=== PATIENT | female | born 1955 | race Caucasian/White ===

== ENCOUNTER 2023-06-03 12:36 | Emergency (ER) | payer OTHER, SELFPAY ==
[2023-06-03 12:39] VITALS: BP 143/67
--- NOTE | 2023-06-03 13:27 | ED.GENMED ---
History of Present Illness
General
Chief Complaint: Musculo-Skeletal Complaint
Source: patient
Time Seen by Provider: 06/03/23 13:17
Travel History
Have you had any contact with someone who has COVID-19?: No
Do you have any symptoms of coronavirus? Fever > 100 degrees, chills, cough, shortness of breath, sore throat, loss of taste or smell, muscle aches, or headache?: No
History of Present Illness
History of Present Illness:
67-year-old female with past medical history of hypertension presenting to the emergency department for evaluation after an accidental trip and fall where she injured her left knee now with inability to flex and extend the knee with significant soft
tissue swelling over the patella. Patient denies any other injuries or concerns. Did not take anything for pain prior to arrival and is declining anything for pain. No other concerns at this time.
Past History
Past History
ED Past Medical History: HTN and Other (Thalassemia/anemia)
ED Past Surgical History: Gynecological and Orthopedic
Social History
Tobacco: Non-smoker
Alcohol: Occasional
Drug: None
Personal:
Living: with family
Employment: Employed
Family History
Family History: Other (Noncontributory)
Review of Systems
Review of Systems
All Other Systems: ROS reviewed and negative except as documented in HPI and ROS
Phy Exam
Physical Exam
Physical Exam:
GENERAL: Alert , in no apparent distress
EYE: conjunctiva clear
Head: Normocephalic atraumatic
NECK: Supple,
ENT: mmm.
LUNGS: no acute respiratory distress
NEUROLOGICAL: Alert and oriented
SKIN: Warm and dry, superficial abrasion anterior patella
MUSCULOSKELETAL: Left knee: Mild to moderate soft tissue swelling around the patella with moderate tenderness directly over the midportion of the patella. Unable to range of motion the left knee secondary to pain. Remainder of extremity is within
normal limits and without signs of trauma.
PSYCH: Normal and appropriate interaction.
Scores
Heart Failure Risk
Heart Failure Risk Score: Not Applicable
Heart Score for Chest Pain Patients
STEMI patient?: Not applicable
Withdrawal Assessment of Alcohol
Withdrawal Assessment Completed?: Not applicable
Course
Orders/Labs/Results
Orders:
Orders
06/03/23 12:42
Knee, Left 4 or More Views [CR Knee - Left 4 Or More View*] Urgent
Comment:
Reason For Exam: injury
06/03/23 13:33
Crutches-Treatment ONCE
Knee Immobilizer Left-Treatmen ONCE
Vital Signs
Initial and Last Documented VS:
Initial Vital Signs
Temp Pulse Resp BP Pulse Ox
97.7 F 82 16 143/67 99
06/03/23 12:39 06/03/23 12:39 06/03/23 12:39 06/03/23 12:39 06/03/23 12:39
Last Documented Vital Signs
Temp Pulse Resp BP Pulse Ox
97.7 F 82 16 143/67 99
06/03/23 12:39 06/03/23 12:39 06/03/23 12:39 06/03/23 12:39 06/03/23 12:39
MDM/Problems Addressed
Differential Diagnosis Includes:
Knee abrasion/contusion, fracture, patellar subluxation/dislocation
MDM/Problems Addressed:
67-year-old female presenting the emergency department for evaluation of left knee pain/injury sustained from an accidental fall. Patient was brought to x-ray from triage and on x-ray review patient has a nondisplaced left patella fracture.
Discussed management of patella fracture with the patient. Will provide with knee immobilizer and crutches. NSAIDs/Tylenol for pain. Prescription for Tylenol with codeine sent to patient's pharmacy. Information for outpatient orthopedist
provided. Stable for discharge home.
*Radiology
Radiology exam reviewed: preliminary read by ED provider (Nondisplaced patella fracture.)
*Pulse Oximetry
Patient hypoxic: no
*Critical Care Note
Total Time (30-74mins, 75-104mins- exclusive of procedures): Not Applicable
ED Attending Note
-
Portions of this chart may have been created with voice recognition software.� Occasional wrong word or��sound alike� substitutions may have occurred due to the inherent limitations of voice recognition software.
Discharge Plan
Departure
Patient Disposition: Home (Routine Discharge)
Date of Disposition: 06/03/23
Time of Disposition: 13:27
Patient with high blood pressure during this ER visit?: Yes
Discharge Problem:
Fracture of left patella
Instructions: Patella Fracture (DC)
Prescriptions:
New
acetaminophen-codeine 300-30 mg Tablet
1 tab PO Q4HPRN PRN (Reason: pain) Qty: 7 0RF
No Action
calcium carbonate 600 MG tablet
1,200 mg PO DAILY
Hydrochlorothiazide
12.5 mg PO DAILY
Patient Comments:
patient states she took this greater than one week ago
Restasis 0.05% Ophthalmic Emulsion:
1 drp BOTH EYES BID
acetaminophen-codeine 1 TABLET tablet
1 - 2 tab PO Q4HPRN PRN (Reason: pain) Qty: 30 0RF
Saccharomyces boulardii 250 MG capsule
250 mg PO BID Qty: 30 0RF
ibuprofen 600 MG tablet
600 mg PO Q6 Qty: 20 0RF
cephalexin [Keflex] 500 MG capsule
500 mg PO QID Qty: 28 0RF
acetaminophen-codeine 1 TABLET tablet
2 tab PO Q4HPRN PRN (Reason: pain) Qty: 15 0RF
Referrals:
Bella Joyce I., DO [Active] - (Ortho - Call for appointment)
Interventions
Interventions:
*Risk Screen - Suicide Last Done: 06/03/23 12:39
*General Assessment Last Done: 06/03/23 12:39
*Neglect/Abuse Screening Last Done: 06/03/23 12:39
== END 2023-06-03 14:00 | disposition home or self-care (01) ==
LOC: EMR 12:36
PROVIDERS: EMERGENCY PHYSICIAN Emergency Medicine; FAMILY PHYSICIAN Family Medicine
DX: S82.002A Unspecified fracture of left patella, initial encounter for closed fracture (principal); W01.0XXA Fall on same level from slipping, tripping and stumbling without subsequent striking against object, initial encounter; I10 Essential (primary) hypertension; D56.9 Thalassemia, unspecified
CPT/HCPCS: 99283; 29505; 73564

== ENCOUNTER → 2024-01-03 11:41 | Outpatient (REF) | payer OTHER, SELFPAY | LOC: WDC 11:41 | PROVIDERS: ATTENDING PHYSICIAN Family Medicine | DX: Z12.31 Encounter for screening mammogram for malignant neoplasm of breast (principal) | CPT/HCPCS: 77063; 77067 ==

== ENCOUNTER → 2024-01-11 10:38 | Outpatient (REF) | payer OTHER, SELFPAY | LOC: RAD 10:38 | PROVIDERS: ATTENDING PHYSICIAN Family Medicine | DX: M25.552 Pain in left hip (principal) | CPT/HCPCS: 73502 ==

== ENCOUNTER → 2024-02-22 15:00 | Outpatient (REF) | payer OTHER, SELFPAY | LOC: MRI 3T 15:00 | PROVIDERS: ATTENDING PHYSICIAN Orthopaedic Surgery; FAMILY PHYSICIAN Family Medicine | DX: M25.552 Pain in left hip (principal) | CPT/HCPCS: 73721 ==

== ENCOUNTER → 2024-06-17 09:12 | Outpatient (REF) | payer OTHER, SELFPAY | LOC: RCS 09:12 | PROVIDERS: ATTENDING PHYSICIAN Internal Medicine; FAMILY PHYSICIAN Family Medicine | DX: R00.2 Palpitations (principal); I10 Essential (primary) hypertension; I49.1 Atrial premature depolarization; R01.1 Cardiac murmur, unspecified; I47.10 Supraventricular tachycardia, unspecified | CPT/HCPCS: 93306 ==

== ENCOUNTER → 2024-06-19 10:29 | Outpatient (REF) | payer OTHER, SELFPAY | LOC: RCS 10:29 | PROVIDERS: ATTENDING PHYSICIAN Internal Medicine; FAMILY PHYSICIAN Family Medicine | DX: R00.2 Palpitations (principal); I10 Essential (primary) hypertension; I49.1 Atrial premature depolarization; R01.1 Cardiac murmur, unspecified; I47.10 Supraventricular tachycardia, unspecified | CPT/HCPCS: 93017 ==

== ENCOUNTER → 2025-02-11 14:43 | Outpatient (REF) | payer OTHER, SELFPAY | LOC: WDC 14:43 | PROVIDERS: ATTENDING PHYSICIAN Family Medicine | DX: Z12.31 Encounter for screening mammogram for malignant neoplasm of breast (principal) | CPT/HCPCS: 77063; 77067 ==

== ENCOUNTER → 2025-04-18 09:10 | Outpatient (REF) | payer OTHER, SELFPAY | LOC: RAD 09:10 | PROVIDERS: ATTENDING PHYSICIAN Internal Medicine Rheumatology; FAMILY PHYSICIAN Family Medicine | DX: M81.0 Age-related osteoporosis without current pathological fracture (principal) | CPT/HCPCS: 77080 ==